=== PATIENT | female | born 1950 | race Caucasian/White ===

== ENCOUNTER 2019-01-16 03:21 | Emergency (ER) | payer OTHER, MEDICARE ==
[2019-01-16 03:47] VITALS: BP 125/99; PULSE 97; TEMP 98.8; BMI 27.4
--- NOTE | 2019-01-16 04:49 | PDOC ---
History of Present Illness - General Chief Complaint: Edema Stated Complaint: SWELLING, FINGER Time Seen by Provider: 01/16/19 04:26 - History of Present Illness Initial Comments: 68yo F with no significant PMH presenting with swelling of the fifth digit of the right hand. She is unable to take her ring off. She noticed her finger become swollen at around 10:30pm and was unable to take off her ring at 2am. She tried using lotion and ice, but the ring would not come off. She believes her swelling has worsened, causing her significant discomfort in her finger. Denies any injury or trauma to the area. Currently feels anxious. No fevers, chills, chest pain, or shortness of breath. Past History - Past Medical History Allergies/Adverse Reactions: Allergies Allergy/AdvReac Type Severity Reaction Status Date / Time No Known Drug Allergies Allergy Verified 01/16/19 03:49 Home Medications: Ambulatory Orders Unobtainable 01/16/19 COPD: No - Suicide/Smoking/Psychosocial Hx Smoking History: Never smoked Have you smoked in the past 12 months: No Information on smoking cessation initiated: No Hx Alcohol Use: No Drug/Substance Use Hx: No Review of Systems - Review of Systems Comments:: Constitutional: no fever, no chills HEENT: no throat pain, no dysphagia Cardiovascular: no chest pain, no palpitations Respiratory: no cough, no shortness of breath Gastrointestinal: no abdominal pain, no nausea Genitourinary: no dysuria, no frequency Musculoskeletal: no myalgia, +finger swelling Skin: no rash, no itching Neurologic: no headache, no weakness *Physical Exam - Vital Signs Last Vital Signs Temp Pulse Resp BP Pulse Ox 98.8 F 97 H 18 125/99 100 01/16/19 03:38 01/16/19 03:38 01/16/19 03:38 01/16/19 03:38 01/16/19 03:38 - Physical Exam Comments: General: Awake, alert, and fully oriented, anxious Head: No signs of trauma Eyes: EOMI, sclera anicteric ENT: Moist mucus membranes Neck: Normal ROM, supple Lungs: Lungs clear, Normal breath sounds Cardio: Regular rhythm, S1 and S2 present Abdomen: Soft, nontender Extremities: Normal range of motion, Distal pulses present. Fifth digit on the left hand: swollen with gold ring around the base of the finger, capillary refill <2 seconds, no abrasion or skin opening noted SKIN: Warm, Dry, normal turgor Neurologic: Cranial nerves II through XII grossly intact. Normal speech Medical Decision Making - Medical Decision Making 68yo F with no significant PMH presenting with swelling of the fifth digit of the right hand. She is unable to take her ring off. Locating ring cutter 01/16/19 04:48 Ring cut off via [facility] device Bag of ice placed on fifth digit to reduce swelling 01/16/19 05:25 Patient discharged *DC/Admit/Observation/Transfer Diagnosis at time of Disposition: Tight ring on finger - Discharge Dispostion Disposition: HOME Condition at time of disposition: Improved - Referrals Referrals: Patsy Montero MD [Primary Care Provider] - - Patient Instructions Additional Instructions: You came into the emergency department for a ring stuck on swollen finger. The ring was cut off. Apply ice to your finger to reduce swelling. 20 min on, 20 min off. You can also take [id number] tylenol for your pain. Follow the instructions on the medication bottle. Immediate medical attention is required if you experience: any focal numbness or weakness, coldness in your finger, or any new or concerning symptoms. If you think you are having an emergency, call for emergency medical services or present to the emergency department right away. - Post Discharge Activity
--- NOTE | 2019-01-16 05:01 | PDOC ---
Attending Attestation - Resident Resident Name: Renee Ayala - ED Attending Attestation I have performed the following: I have examined & evaluated the patient, The case was reviewed & discussed with the resident, I agree w/resident's findings & plan, Exceptions are as noted - HPI HPI: 01/16/19 05:25 68F with ring stuck on R hand D5, endorsing pain - Physicial Exam PE: 01/16/19 05:25 Distal swelling, erythema SILT - Medical Decision Making 01/16/19 05:25 Ring removed with ring cutter Improvement in px Cap refill <2sec Sensation intact dc
== END 2019-01-16 05:44 | disposition home or self-care (01) ==
LOC: JER 03:21
DX: S60.446A External constriction of right little finger, initial encounter (principal); W49.04XA Ring or other jewelry causing external constriction, initial encounter; Y93.89 Activity, other specified; Y92.89 Other specified places as the place of occurrence of the external cause; Y99.8 Other external cause status
CPT/HCPCS: 99281-25